=== PATIENT | female | born 1990 | race Caucasian/White ===

== ENCOUNTER 2021-05-22 06:25 | Inpatient (IN) | payer OTHER ==
[2021-05-22] MEDS: ELECTROLYTE-148 SOLN 1,000 ML IV SCH (07:00)
[2021-05-22] MEDS ORDERED: CITRIC ACID/SODIUM CITRATE 30 ML UNIT-DOSE CUP PO ONE (07:24)
[2021-05-22 07:48] VITALS: BMI 37.1
[2021-05-22] MEDS ORDERED: ONDANSETRON 4 MG/2 ML VIAL IVPUSH PRN (08:04)
[2021-05-22] MEDS ORDERED: morphine SULFATE/PF 0.5 MG/ML (2cc Syringe - QUVA) ONE (08:13)
[2021-05-22] MEDS ORDERED: ONDANSETRON 4 MG/2 ML VIAL ONE (08:29)
[2021-05-22] MEDS ORDERED: PHENYLEPHRINE HCL 10 MG/1 ML SINGLE DOSE VIAL ONE (08:37)
[2021-05-22] MEDS ORDERED: OXYTOCIN 10 UNITS/ML VIAL ONE ×3 (08:38→08:56)
[2021-05-22] MEDS ORDERED: KETOROLAC TROMETHAMINE 30 MG/1 ML VIAL ONE (08:49)
[2021-05-22] MEDS ORDERED: MIDAZOLAM HCL 2 MG/2 ML SINGLE DOSE VIAL ONE (08:53)
[2021-05-22] MEDS ORDERED: BENZOCAINE 20% 57 GM BOTTLE TP PRN (09:25)
[2021-05-22] MEDS ORDERED: WITCH HAZEL 50% (TUCKS) 40 PAD/JAR PAD TP PRN (09:25)
[2021-05-22] MEDS ORDERED: BENZOCAINE 28 GM HEMORRHOIDAL OINTMENT RC PRN (09:25)
[2021-05-22] MEDS ORDERED: diphenhydrAMINE HCL 25 MG CAPSULE (FP) PO PRN (09:25)
[2021-05-22] MEDS ORDERED: METHYLERGONOVINE MALEATE 0.2 MG/1 ML AMP IM PRN (09:25)
[2021-05-22] MEDS ORDERED: OXYTOCIN 20 UNITS in 0.9% NS 20 UNIT/1,000 ML INFUS.BAG IV SCH (09:30)
[2021-05-22] MEDS ORDERED: DEXTROSE 5%-LACTATED RINGERS 1,000 ML IV SCH (09:30)
[2021-05-22] MEDS ORDERED: IBUPROFEN 600 MG TABLET (FP) PO PRN (09:40)
[2021-05-22] MEDS ORDERED: CEFAZOLIN 1 GM/D5W 1 GM/50 ML BAG IVPB SCH (10:00)
[2021-05-22] MEDS ORDERED: OXYTOCIN 20 UNITS in 0.9% NS 20 UNIT/1,000 ML INFUS.BAG IV ONE (10:17)
[2021-05-22] MEDS ORDERED: ACETAMINOPHEN 1000 MG/100 ML VIAL (NON FORMULARY) IVPB ONE (10:30)
[2021-05-22 11:33] LABS: HIV INTERPRETATION NEGATIVE (NEGATIVE)
[2021-05-22] MEDS: IBUPROFEN 800 MG/8 ML IJ IVPB PRN (15:41)
[2021-05-22] MEDS: CEFAZOLIN 1 GM/D5W 1 GM/50 ML BAG IVPB SCH (17:17)
[2021-05-22] MEDS: SIMETHICONE 80 MG TAB.CHEW (FP) PO PRN (19:43)
[2021-05-22] MEDS: oxyCODONE HCL 5 MG TABLET PO PRN (19:47)
[2021-05-22] MEDS: ACETAMINOPHEN 325 MG TABLET (FP) PO PRN (19:50)
[2021-05-23] MEDS: CEFAZOLIN 1 GM/D5W 1 GM/50 ML BAG IVPB SCH (00:36)
[2021-05-23] MEDS: IBUPROFEN 800 MG/8 ML IJ IVPB PRN (00:41)
[2021-05-23] MEDS: SIMETHICONE 80 MG TAB.CHEW (FP) PO PRN ×4 (04:03→21:36)
[2021-05-23] MEDS: oxyCODONE HCL 5 MG TABLET PO PRN ×5 (04:03→21:36)
[2021-05-23] MEDS: ACETAMINOPHEN 325 MG TABLET (FP) PO PRN ×2 (04:04→21:37)
[2021-05-23] MEDS ORDERED: BISACODYL 10 MG SUPP.RECT PR PRN (09:25)
[2021-05-23] MEDS: ENOXAPARIN NA (PORCINE) 40 MG/0.4 ML DISP.SYRIN SQ SCH (09:58)
[2021-05-23] MEDS: IBUPROFEN 600 MG TABLET (FP) PO PRN ×2 (10:09→18:45)
[2021-05-23 10:38] LABS: BASO % 0.3 % (0-2.0); HEMATOCRIT 31.2 % (32.4-45.2); LYMPH % 13.6 % (8-40); MCH 33.1 pg (25.7-33.7); MCHC 35.2 g/dl (32.0-36.0); MEAN PLT VOLUME 9.3 fl (7.5-11.1); MONO % 7.4 % (3.8-10.2); NEUT % 77.7 % (42.8-82.8); PLATELET COUNT 99 10^3/uL (134-434); RBC 3.32 M/mm3 (3.60-5.2); RDW 13.2 % (11.6-15.6); WHITE BLOOD COUNT 9.2 K/mm3 (4.0-10.0)
[2021-05-24] MEDS: ACETAMINOPHEN 325 MG TABLET (FP) PO PRN ×2 (04:27→19:08)
[2021-05-24] MEDS: oxyCODONE HCL 5 MG TABLET PO PRN ×3 (04:28→19:08)
[2021-05-24] MEDS: SIMETHICONE 80 MG TAB.CHEW (FP) PO PRN ×4 (04:29→19:07)
[2021-05-24] MEDS: ENOXAPARIN NA (PORCINE) 40 MG/0.4 ML DISP.SYRIN SQ SCH (09:46)
[2021-05-24] MEDS: IBUPROFEN 600 MG TABLET (FP) PO PRN ×2 (13:19→23:36)
[2021-05-24] MEDS ORDERED: SENNOSIDES/DOCUSATE COMBO (SENNA PLUS) TABLET (UD) PO PRN (22:00)
[2021-05-25] MEDS: IBUPROFEN 600 MG TABLET (FP) PO PRN ×2 (06:35→11:00)
[2021-05-25 09:54] VITALS: BP 118/75; PULSE 89; TEMP 98
[2021-05-25] MEDS: ELECTROLYTE-148 SOLN 1,000 ML IV SCH (10:41)
[2021-05-25 10:54] LABS: BASO % 0.6 % (0-2.0); EOS % 2.8 % (0-4.5); HEMATOCRIT 30.3 % (32.4-45.2); HEMOGLOBIN 10.7 GM/dL (10.7-15.3); LYMPH % 16.2 % (8-40); MCHC 35.2 g/dl (32.0-36.0); MEAN CELL VOLUME 93.8 fl (80-96); MEAN PLT VOLUME 8.7 fl (7.5-11.1); MONO % 5.5 % (3.8-10.2); NEUT % 74.9 % (42.8-82.8); PLATELET COUNT 139 10^3/uL (134-434); RBC 3.23 M/mm3 (3.60-5.2); RDW 13.3 % (11.6-15.6); WHITE BLOOD COUNT 7.1 K/mm3 (4.0-10.0)
[2021-05-25] MEDS: ENOXAPARIN NA (PORCINE) 40 MG/0.4 ML DISP.SYRIN SQ SCH (10:54)
[2021-05-25] MEDS: SIMETHICONE 80 MG TAB.CHEW (FP) PO PRN (11:00)
== END 2021-05-25 13:30 | disposition home or self-care (01) | DRG 540 ==
LOC: JLDR 06:25 → J3W 15:20
PROVIDERS: ADMIT Obstetrics & Gynecology; ATTEND Obstetrics & Gynecology
PROC: 10D00Z1 Extraction of Products of Conception, Low, Open Approach (ICD-10-PCS; principal; 2021-05-22)
PROC: 0DNU0ZZ Release Omentum, Open Approach (ICD-10-PCS; 2021-05-22)
PROC: 0DNW0ZZ Release Peritoneum, Open Approach (ICD-10-PCS; 2021-05-22)
DX: O34.219 Maternal care for unspecified type scar from previous cesarean delivery (principal); O99.214 Obesity complicating childbirth; E66.9 Obesity, unspecified; O99.892 Other specified diseases and conditions complicating childbirth; N73.6 Female pelvic peritoneal adhesions (postinfective); Z3A.39 39 weeks gestation of pregnancy; Z37.0 Single live birth
CPT/HCPCS: 36415; 85025; 86762; 87340; 87389; J0131

== ENCOUNTER 2024-04-15 17:19 | Emergency (ER) | payer OTHER ==
[2024-04-15 17:36] VITALS: TEMP 98.3; BMI 29.2
[2024-04-15] MEDS ORDERED: ACETAMINOPHEN INJECTION 100 ML IVPB ONE (18:16)
[2024-04-15] MEDS ORDERED: MORPHINE SULFATE 2 MG/ML SYRINGE ONE ×2 (18:16→21:33)
[2024-04-15] MEDS: ACETAMINOPHEN 1000 MG/100 ML BAG IVPB ONE (18:48)
[2024-04-15] MEDS: morphine SULFATE 4 MG/ML VIAL IVPUSH ONE ×2 (18:49→21:44)
[2024-04-15 18:54] LABS: BASO % 0.4 % (0-2.0); EOS % 0.4 % (0-4.5); HEMATOCRIT 32.8 % (32.4-45.2); HEMOGLOBIN 10.8 GM/dL (10.7-15.3); LYMPH % 17.8 % (8-40); MCHC 32.9 g/dl (32.0-36.0); MEAN CELL VOLUME 79.1 fl (80-96); MEAN PLT VOLUME 8.6 fl (7.5-11.1); MONO % 5.8 % (3.8-10.2); NEUT % 75.6 % (42.8-82.8); PLATELET COUNT 203 10^3/uL (134-434); RBC 4.15 M/mm3 (3.60-5.2); RDW 16.4 % (11.6-15.6); WHITE BLOOD COUNT 8.3 K/mm3 (4.0-10.0)
[2024-04-15 19:00] LABS: INR 1.05 (0.83-1.09); PROTHROMBIN TIME (PATIENT) 11.8 SEC (9.7-13.0)
[2024-04-15 19:03] LABS: ACTIVATED PTT 25.6 SECONDS (25.2-36.5)
[2024-04-15 19:13] LABS: CHLORIDE 108 mmol/L (98-107); POTASSIUM 3.8 mmol/L (3.5-5.1); SODIUM 139 mmol/L (136-145)
[2024-04-15 19:15] LABS: ALBUMIN 3.9 g/dl (3.4-5.0); ANION GAP 5 mmol/L (4-13); CALCIUM 8.6 mg/dL (8.5-10.1); CO2 26 mmol/L (21-32); GLUCOSE,RANDOM 89 mg/dL (74-106)
[2024-04-15 19:16] LABS: BLOOD UREA NITROGEN 16.8 mg/dL (7-18)
[2024-04-15 19:18] LABS: SGOT/AST 21 U/L (15-37)
[2024-04-15 19:20] LABS: BILIRUBIN,TOTAL 0.4 mg/dL (0.2-1); TOT PROT 7.1 g/dl (6.4-8.2)
[2024-04-15 19:21] LABS: ALK PHOS 62 U/L (45-117)
[2024-04-15] MEDS ORDERED: BACITRACIN 0.9 GM PACKET ONE (20:09)
[2024-04-15 20:15] LABS: CREATININE 0.9 mg/dL (0.55-1.3); SGPT/ALT 15 U/L (13-61)
[2024-04-15 20:44] VITALS: RESP 16
[2024-04-15] MEDS: BACITRACIN ZINC 15 GM TUBE TOPICAL OINTMENT TP ONE (20:44)
[2024-04-15 23:31] VITALS: BP 116/75; PULSE 78
== END 2024-04-15 23:46 | disposition home or self-care (01) ==
LOC: JER 17:19
PROC: 3E033NZ Introduction of Analgesics, Hypnotics, Sedatives into Peripheral Vein, Percutaneous Approach (ICD-10-PCS; principal; 2024-04-15)
PROC: 3E033NZ Introduction of Analgesics, Hypnotics, Sedatives into Peripheral Vein, Percutaneous Approach (ICD-10-PCS; 2024-04-15)
PROC: 3E033NZ Introduction of Analgesics, Hypnotics, Sedatives into Peripheral Vein, Percutaneous Approach (ICD-10-PCS; 2024-04-15)
DX: S00.03XA Contusion of scalp, initial encounter (principal); S50.312A Abrasion of left elbow, initial encounter; S90.511A Abrasion, right ankle, initial encounter; S90.411A Abrasion, right great toe, initial encounter; R42 Dizziness and giddiness; M25.552 Pain in left hip; M79.652 Pain in left thigh; M79.672 Pain in left foot; R10.32 Left lower quadrant pain; V03.10XA Pedestrian on foot injured in collision with car, pick-up truck or van in traffic accident, initial encounter; Y92.410 Unspecified street and highway as the place of occurrence of the external cause; Z20.822 Contact with and (suspected) exposure to COVID-19
CPT/HCPCS: 0241U-QW; 36415; 70450-TC; 71045-TC-FY; 71260-TC; 72125-TC; 72170-TC-FY; 73552-TC-LT-FY; 73610-TC-RT-FY; 73630-TC-LT; 73630-TC-RT-FY; 74177-TC; 80053; 80307; 84703; 85025; 85610; 85730; 86850; 86900; 86901; 93005; 93010; 99285-25; J0131; Q9967

== ENCOUNTER 2024-07-09 18:50 | Inpatient (IN) | payer OTHER ==
[2024-07-09 18:58] VITALS: RESP 18
[2024-07-09] MEDS ORDERED: CEFTRIAXONE 1 GM/50 ML BAG ONE (20:03)
[2024-07-09] MEDS ORDERED: VANCOMYCIN 1 GRAM (PRE-DOCKED) 1,000 MG/250 ML BAG IVPB ONE (20:03)
[2024-07-09] MEDS: CEFTRIAXONE 1 GM in DEXTROSE 5%-WATER - 50 ML IVPB ONE (20:07)
[2024-07-09 20:08] LABS: BASO % 1.2 % (0-2.0); EOS % 0.6 % (0-4.5); HEMATOCRIT 30.6 % (32.4-45.2); HEMOGLOBIN 9.8 GM/dL (10.7-15.3); LYMPH % 21.8 % (8-40); MCH 25.3 pg (25.7-33.7); MCHC 32.1 g/dl (32.0-36.0); MEAN CELL VOLUME 78.9 fl (80-96); MEAN PLT VOLUME 8.5 fl (7.5-11.1); MONO % 7.3 % (3.8-10.2); NEUT % 69.1 % (42.8-82.8); PLATELET COUNT 197 10^3/uL (134-434); RBC 3.88 M/mm3 (3.60-5.2); RDW 15.3 % (11.6-15.6); WHITE BLOOD COUNT 6.4 K/mm3 (4.0-10.0)
[2024-07-09] MEDS: VANCOMYCIN 1,000 MG in DEXTROSE 5%-WATER - 250 ML IVPB ONE (20:30)
[2024-07-09 20:38] LABS: POTASSIUM 4.1 mmol/L (3.5-5.1)
[2024-07-09 20:40] LABS: ALBUMIN 3.6 g/dl (3.4-5.0); CALCIUM 9.1 mg/dL (8.5-10.1)
[2024-07-09 20:44] LABS: CREATININE 0.9 mg/dL (0.55-1.3)
[2024-07-09 20:45] LABS: BILIRUBIN,TOTAL 0.3 mg/dL (0.2-1); TOT PROT 6.9 g/dl (6.4-8.2)
[2024-07-09 21:01] LABS: ERYTHROCYTE SEDIMENTATION RATE 33 mm/hr (0-20)
[2024-07-09] MEDS ORDERED: ACETAMINOPHEN INJECTION 100 ML ONE (21:19)
[2024-07-09] MEDS: ACETAMINOPHEN 1000 MG/100 ML BAG IVPB ONE (21:25)
[2024-07-10] MEDS: KETOROLAC TROMETHAMINE 30 MG/1 ML VIAL IM ONE (02:18)
[2024-07-10 03:47] VITALS: BMI 32.5
[2024-07-10] MEDS: ACETAMINOPHEN 1000 MG/100 ML BAG IVPB PRN (05:50)
[2024-07-10] MEDS: VANCOMYCIN/WATER 1250 MG 1,250 MG/250 ML BAG IVPB SCH ×2 (08:28→21:38)
[2024-07-10 09:19] LABS: HEMATOCRIT 28.2 % (32.4-45.2); HEMOGLOBIN 9.1 GM/dL (10.7-15.3); MCH 25.4 pg (25.7-33.7); MCHC 32.1 g/dl (32.0-36.0); MEAN CELL VOLUME 78.9 fl (80-96); MEAN PLT VOLUME 8.7 fl (7.5-11.1); PLATELET COUNT 166 10^3/uL (134-434); RBC 3.57 M/mm3 (3.60-5.2); RDW 15.3 % (11.6-15.6); WHITE BLOOD COUNT 4.7 K/mm3 (4.0-10.0)
[2024-07-10 09:38] LABS: POTASSIUM 3.9 mmol/L (3.5-5.1)
[2024-07-10 09:44] LABS: CALCIUM 8.3 mg/dL (8.5-10.1)
[2024-07-10 09:45] LABS: BLOOD UREA NITROGEN 15.3 mg/dL (7-18)
[2024-07-10] MEDS: ENOXAPARIN NA (PORCINE) 40 MG/0.4 ML DISP.SYRIN SQ SCH (09:45)
[2024-07-10 09:48] LABS: CREATININE 0.6 mg/dL (0.55-1.3); PHOSPHOROUS 3.4 mg/dL (2.5-4.9)
[2024-07-10] MEDS: KETOROLAC TROMETHAMINE 15 MG/ML VIAL IVPUSH PRN (10:50)
[2024-07-10] MEDS: CEFTRIAXONE 1 GM in DEXTROSE 5%-WATER - 50 ML IVPB SCH (10:59)
[2024-07-10 11:18] LABS: HIV INTERPRETATION NEGATIVE (NEGATIVE)
[2024-07-11 09:20] LABS: BASO % 0.6 % (0-2.0); EOS % 1.7 % (0-4.5); HEMATOCRIT 31.6 % (32.4-45.2); HEMOGLOBIN 10.1 GM/dL (10.7-15.3); LYMPH % 34.1 % (8-40); MCH 25.6 pg (25.7-33.7); MCHC 32.1 g/dl (32.0-36.0); MEAN CELL VOLUME 79.7 fl (80-96); MEAN PLT VOLUME 8.8 fl (7.5-11.1); MONO % 7.4 % (3.8-10.2); NEUT % 56.2 % (42.8-82.8); PLATELET COUNT 198 10^3/uL (134-434); RBC 3.96 M/mm3 (3.60-5.2); RDW 15.2 % (11.6-15.6); WHITE BLOOD COUNT 4.9 K/mm3 (4.0-10.0)
[2024-07-11 09:44] LABS: POTASSIUM 4.5 mmol/L (3.5-5.1)
[2024-07-11 10:01] LABS: BLOOD UREA NITROGEN 17.7 mg/dL (7-18)
[2024-07-11 10:02] LABS: CALCIUM 8.7 mg/dL (8.5-10.1)
[2024-07-11 10:05] LABS: CREATININE 0.6 mg/dL (0.55-1.3)
[2024-07-11 11:53] VITALS: BP 101/46; PULSE 77; TEMP 98.2
== END 2024-07-11 11:40 | disposition home or self-care (01) | DRG 383 ==
LOC: JER 18:50 → JERBED 22:53 → J6S 07-10 00:30
PROVIDERS: ADMIT Internal Medicine; ATTEND Internal Medicine
DX: L03.114 Cellulitis of left upper limb (principal); D50.9 Iron deficiency anemia, unspecified
CPT/HCPCS: 36415; 73070-TC-LT-FY; 76882-TC-RT-FY; 80048; 80053; 83540; 83550; 83735; 84100; 84703; 85025; 85027; 85651; 86140; 87040; 87070; 87077; 87081; 87186; 87205; 87389; 87491; 87591; 99285-25; J0131